=== PATIENT | female | born 1945 | race Caucasian/White ===

== ENCOUNTER → 2016-11-12 | Outpatient (CLI) | payer MEDICARE ==
[~2016-11-12] MED LIST: ARIMIDEX DPS1 MG PO; ARMOUR THYROID60 M1 PO; CALTRATE-600 D600 MG PO; CORTEF10 MG PO; LEVAQUIN DPS750 MG PO; MAG-OX400 MG PO; MOBIC15 MG PO; NEURONTIN DPS600 MG PO; NORCO 5-325 TA1 EACH PO; OCUVITE SOFTGE1 EACH PO; PERCOCET 5 DPS1 TAB PO; PROTONIX40 MG PO; TYLENOL DPS325 MG PO; VIBRAMYCIN-DPS100 M1 PO; VITAMIN C1000 MG PO; VITAMIN D31000 UNIT PO; ZOLOFT DPS100 MG PO; ZYLOPRIM-DPS300 MG PO
== END | disposition home or self-care (01) ==
LOC: RAD.S 13:54
DX: Z12.31 Encounter for screening mammogram for malignant neoplasm of breast (principal); M85.80 Other specified disorders of bone density and structure, unspecified site; M81.0 Age-related osteoporosis without current pathological fracture; R92.1 Mammographic calcification found on diagnostic imaging of breast; I10 Essential (primary) hypertension; Z17.0 Estrogen receptor positive status [ER+]; Z85.3 Personal history of malignant neoplasm of breast; Z98.890 Other specified postprocedural states

== ENCOUNTER 2016-11-17 19:52 | Inpatient (IN) | payer MEDICARE ==
[~2016-11-17] VITALS: Ht 157.5 cm; Wt 95.0 kg
--- NOTE | ~2016-11-17 | DS ---
ADMIT: 11/17/2016 RM/LOC: [facility] MR#: [id number] [facility]#: [id number] [address] [address] SAGE HOOD [address] [place] [address] Discharge Summary SEX: F AGE: 71 : 1945 ADMISSION DATE: 11/17/2016 DISCHARGE DATE: 11/20/2016 REASON FOR ADMISSION: Thoracic diskitis. CONSULTS: Dr. Ferreira with Infectious Disease. PROCEDURE: T11-T12 disc and bone biopsy by Interventional Radiology. HOSPITAL COURSE: Ms. Hood is a very pleasant, 71-year-old female who on the day of admission was taken to the [place] emergency room by ambulance with back pain, foot numbness and fever. She had a knee revision approximately two months ago in [place]. She had been to her doctor the day prior with diarrhea. A CT scan in [place] showed possible thoracic diskitis and she was transferred to [facility] for further evaluation and higher level of care with Dr. Watkins. She was admitted to the med/surg floor for monitoring and care. Sepsis protocol was initiated on admission. Dr. Ferreira with Infectious Disease was consulted. An MRI of her brain and C-spine were obtained as well. These showed no enhancements. Interventional Radiology was consulted for T11-T12 biopsy. Hospital day #2, she was working with Physical Therapy and Occupational Therapy. She was awake and alert. She was afebrile and her vital signs were stable. She was moving all extremities x4 with some left-sided weakness. Hospital day #3, she was awake and alert, she was afebrile her vital signs were stable. She was moving all extremities x4. She was complaining of her feet being painful but improving. She continued to work with Physical Therapy and Occupational Therapy. Hospital day #4, she was awake and alert. She was afebrile and her vital signs were stable. She was moving all extremities x4. She denied back pain. Her foot pain continued to improve. She was ambulating, urinating and defecating per her norm and was requesting dismissal home. DISCHARGE CONDITION: Good. DISCHARGE MEDICATIONS: 1. Percocet 5/325, 1-2 p.o. q.4 hours p.r.n. 2. Tylenol 650 mg p.o. q.4 hours p.r.n. 3. [place] Thyroid 60 mg b.i.d. 4. Anastrozole 1 mg daily. 5. Meloxicam 15 mg daily. 6. Gabapentin 900 mg at bedtime. 7. Pantoprazole 40 mg b.i.d. 8. Allopurinol 300 mg b.i.d. 9. Hydrocortisone 10 mg daily. 10.Sertraline 100 mg daily. 11.[place] 5/325 1 tab q.8 hours p.r.n. 12.Calcium 1200 mg daily. 13.Vitamin D3 a 1000 units daily. 14.Mag museum oxide 500 mg daily. 15.Ocuvite daily. ADMIT: 11/17/2016 RM/LOC: [facility] MR#: [id number] [address] [place] [id number] SAGE HOOD Cristy [address] [place] [address] Discharge Summary SEX: F AGE: 71 : 1945 16.Vitamin C 1000 mg daily. 17.Doxycycline 100 mg b.i.d. x2 weeks. 18.Levofloxacin 200 mg daily x2 weeks. DISCHARGE INSTRUCTIONS: (Per Dr. Watkins) She can have a regular diet. She can do activity as tolerated. She should use fall precautions. She will call with any questions or concerns including neurological worsening, signs or symptoms of infection, or any other issues. She will have a sedimentation rate and CRP in 1 month. FOLLOWUP: She will follow up with Dr. Watkins in 1 month. She is to have a lumbar and thoracic spine MRI with contrast in 2 weeks in [place] with those results faxed to Dr. Ferreira. She will follow up with Dr. Ferreira in clinic in 2 weeks. DISPOSITION: She was discharged home. Total [id number] time for the discharge planning and care coordination was 30 minutes. Shakira Thorpe APRN / Jamin Watkins MD / vdg JOB #: [id number] CC: Jamin Watkins MD, Attending Physician Jamin Watkins MD, Family Physician
[2016-11-22] MEDS ORDERED: ARMOUR THYROID60 M1 PO (11:33)
[2016-11-22] MEDS ORDERED: NEURONTIN DPS600 MG PO (11:33)
[2016-11-22] MEDS ORDERED: ARIMIDEX DPS1 MG PO (11:33)
[2016-11-22] MEDS ORDERED: PROTONIX40 MG PO (11:33)
[2016-11-22] MEDS ORDERED: ZYLOPRIM-DPS300 MG PO (11:33)
[2016-11-22] MEDS ORDERED: MOBIC15 MG PO (11:33)
[2016-11-22] MEDS ORDERED: NORCO 5-325 TA1 EACH PO (11:34)
[2016-11-22] MEDS ORDERED: CALTRATE-600 D600 MG PO (11:34)
[2016-11-22] MEDS ORDERED: VITAMIN D31000 UNIT PO (11:34)
[2016-11-22] MEDS ORDERED: ZOLOFT DPS100 MG PO (11:34)
[2016-11-22] MEDS ORDERED: CORTEF10 MG PO (11:34)
[2016-11-22] MEDS ORDERED: OCUVITE SOFTGE1 EACH PO (11:35)
[2016-11-22] MEDS ORDERED: VITAMIN C1000 MG PO (11:35)
[2016-11-22] MEDS ORDERED: TYLENOL DPS325 MG PO (11:35)
[2016-11-22] MEDS ORDERED: MAG-OX400 MG PO (11:35)
[2016-11-22] MEDS ORDERED: PERCOCET 5 DPS1 TAB PO (11:36)
[2016-11-22] MEDS ORDERED: VIBRAMYCIN-DPS100 M1 PO (11:36)
[2016-11-22] MEDS ORDERED: LEVAQUIN DPS750 MG PO (11:36)
--- NOTE | 2016-11-24 08:55 | HP ---
ADMIT: 11/17/2016 RM/LOC: 521 [facility] MR#: [id number] [facility]#: [id number] [id number] [place], [place] [address] SAGE HOOD [address] [place] [address] History and Physical SEX: F AGE: 71 : 1945 CORRECTED: 11/18/2016 0842 [facility] DATE OF SERVICE: 11/17/2016 REASON FOR ADMIT: Thoracic 11-12 diskitis. HISTORY OF PRESENT ILLNESS: Ms. Hood could not really get out of bed this morning. She had a lot of pain in her left foot although she has some pain throughout her left hemibody, but the left foot is really severe, and also in the middle of her back and thoracolumbar junction. She was really unable to walk much because of the severe pain, although she says she has been defecating and urinating per her norm and feels like she has normal function. It is just the severe pain that has limited her mobility tonight. She has not really been sick lately. She did have a right knee replacement [address] Rowe in [place]. She has had a fever and with a high white count. ISATU Devine, from [facility] called me for transfer PAST MEDICAL HISTORY: Breast lumpectomy, prior lumbar surgery, tubal ligation, cholecystectomy, shoulder surgery, tonsillectomy, GERD, arthritis, diverticulitis, gout, shoulder fracture, right knee arthroplasty, hypothyroidism, depression. FAMILY HISTORY: Arthritis, anemia, prostate cancer. SOCIAL HISTORY: She is a nonsmoker and nondrinker. REVIEW OF SYSTEMS: Complete review of systems was obtained and amended to the history of present illness. LABORATORY DATA: White count 15.5 with 90% neutrophils. Urine with trace leuk esterase, rare epithelium bacteria. Amylase 48, lipase 137, glucose 112, BUN 20, GFR 59. TSH within normal limits. Magnesium 1.4. MEDICATIONS: 1. [place] Thyroid. 2. Meloxicam. 3. Vitamin D. 4. Vitamin C. 5. Arimidex. 6. Gabapentin. 7. Pantoprazole. 8. Allopurinol. 9. Hydrocodone. 10.Hydrocortisone. 11.Sertraline. 12.Mag-Ox. 13.Calcium. PHYSICAL EXAMINATION: VITAL SIGNS: MAP has been 70s to 80s, blood pressure ADMIT: 11/17/2016 RM/LOC: 521 [facility] MR#: [id number] [address] [address] SAGE HOOD [address] [place] [address] History and Physical SEX: F AGE: 71 : 1945 100-139 systolic over 70s diastolic. Pulse has been in the 70s to 80s. Pulse oximetry 98-100%, respiring 12 times a minute. GENERAL: She is an otherwise healthy-appearing, but obese woman. HEENT: Atraumatic head. No scleral icterus. Clear oropharynx. LUNGS: Normal respiratory excursion. ABDOMEN: Soft abdomen. Nontender. EXTREMITIES: With examination, she has pain to movement and touch of her left foot and ankle. 2+ radial pulses. NEUROLOGICAL EXAMINATION: MENTAL STATUS: She is awake, alert, oriented x4. She has no dysphonia, dysarthria, or aphasia. Her affect is appropriate. Her thought content is normal. CRANIAL NERVES: Cranial nerves II through XII were individually tested and found to be intact without deficit. MOTOR EXAM: Motor exam reveals 5/5 strength in bilateral upper and lower extremities, although she has a lot of pain in both the left arm and left leg with movement. The movement pain does not include meningeal irritation signs. She has some mild weakness in the left hemibody, 4+/5. CEREBELLAR: No cerebellar signs. SENSATION: Intact to light touch. DEEP TENDON REFLEXES: 2/4 in the upper and lower extremities. ASSESSMENT AND PLAN: Ms. Hood is a very pleasant woman with MRI delineated T11-12 diskitis. I am going to start the sepsis bundle even though she does not have any cardinal signs of sepsis so that we have the laboratory analysis necessary as well as blood cultures and emergently begin her vancomycin and Zosyn per earlier discussion after accepting transfer with Dr. Ferreira who will see the patient on an ID consult in the morning when laboratory analysis is back as long as we get antibiotics started this ADMIT: 11/17/2016 RM/LOC: 521 [facility] MR#: [id number] [address] [address] SAGE HOOD [address] [place] [address] History and Physical SEX: F AGE: 71 : 1945 evening. She has already had what looks like a couple of liters of normal saline in [place]. I will follow up on laboratory analysis tonight. She has some pain which I think is what is limiting factor, although with diskitis at one level, I am going to obtain an MRI of her brain and cervical spine secondary to that possible weakness, which may be break away in nature because she does have some pain in the left hemibody, although it is a little bit of an unusual presentation, and as such, I think this warrants further imaging with a brain and cervical spine MRI with and without contrast. They are in drawing labs now within about a half hour of her arrival, and antibiotics will be started shortly. Order is already in. Jamin Watkins MD/ chip JOB #: [id number] CC: Jamin Watkins MD, Attending Physician Jamin Watkins MD, Family Physician CORRECTED: 11/18/2016 0842 [facility]
--- NOTE | 2016-11-27 11:23 | CO ---
ADMIT: 11/17/2016 RM/LOC: 521 [facility] MR#: [id number] [address] [address] S[place] HOOD [address] [place] [address] Consultation SEX: F AGE: 71 : 1945 DATE OF CONSULTATION: 11/19/2016 ATTENDING PHYSICIAN: Jamin Watkins MD CONSULTING PHYSICIAN: Kaycee Ferreira MD REASON FOR CONSULT: T11-T12 diskitis. Thank you, Dr. Watkins, for the consult and involving me in this patient's care. HISTORY OF PRESENT ILLNESS: Ms. Hood is a pleasant 71-year-old woman, who was transferred from [place] after she was diagnosed of T11-T12 diskitis. Per the patient, 2 days back, she started noticing severe 10/10 mid-thoracic back pain. She was unable to get up and walk due to severe pain, hence, presented to her primary care doctor and later to the ER. She recently had a right knee total knee replacement around 8 weeks ago in [place] by [place]. Rowe in [place]. When she presented to the ER, she was noted to have fever of 102, and high white count of 15.5. An MRI of the lumbar spine was done with contrast, which showed diskitis at T11-T12 level and mild epidural enhancement. She underwent IR-guided vertebral bone biopsy yesterday and culture and pathology is pending at this time. At present, she complains of severe diarrhea which started a few weeks back and had cleared up. She started again noticing diarrhea, it is 3-4 times a day, loose watery in consistency and was prescribed Flagyl by her primary care doctor without much improvement. She has 2 pet cat scratch avila on her right forearm by her pet cat. FAMILY HISTORY: Significant for prostate cancer in her father. Unknown cancer in her mother. PAST MEDICAL HISTORY: 1. History of breast cancer, status post lumpectomy. 2. Prior lumbar surgery. 3. Cholecystectomy. 4. Tubal ligation. 5. Shoulder surgery. 6. Tonsillectomy. 7. Arthritis. 8. Diverticulitis. 9. Gout. 10.Shoulder fracture. 11.Right knee arthroplasty in August 2016. 12.Depression. 13.Hypothyroidism. SOCIAL HISTORY: She lives at home with her . She has a pet cat and dog. Denies any smoking, alcohol, or recreational drug use. ALLERGIES: NO KNOWN DRUG ALLERGIES. ADMIT: 11/17/2016 RM/LOC: 521 [facility] MR#: [id number] [address] [address] SAGE HOOD [address] [place] [address] Consultation SEX: F AGE: 71 : 1945 CURRENT MEDICATIONS: 1. Arimidex. 2. [place] Thyroid. 3. Cortef 10 mg daily. 4. Flagyl 500 mg t.i.d. 5. Magnesium oxide. 6. Milk of magnesia. 7. Neurontin. 8. Oyster calcium. 9. Protonix. 10.Senokot. 11.Multivitamin. 12.Vitamin C. 13.Vitamin D. 14.Zoloft. 15.Zyloprim. 16.Vancomycin 1 g once daily. 17.Zosyn 3.375 g every 8 hours. PHYSICAL EXAMINATION: VITAL SIGNS: Current temperature 99.8, T-max 100.2, heart rate is 70, respirations 16, blood pressure 124/59, 98% on room air. GENERAL: No acute distress. HEENT. Head normocephalic and atraumatic. Extraocular movements intact. Oral mucosa moist. NECK AND LYMPH: No palpable anterior, posterior, cervical or supraclavicular lymphadenopathy. CHEST: Clear to auscultation bilaterally anteriorly. CARDIOVASCULAR: S1 and S2 heard. Regular rate and rhythm. ABDOMEN: Soft, nontender, and nondistended. Active bowel sounds. MUSCULOSKELETAL: Right knee is mildly warm to touch. No tenderness to palpation. Incision has healed well. PSYCH: Normal affect. Memory intact. DATA REVIEW: CBC on admission showed white count of 10.1, hemoglobin 11.5, and platelets of 195, ESR is 32. CMP showed creatinine of 0.8. Low albumin of 2.9 and magnesium of 1.6. CRP 13.5. Urinalysis showed less than 1 wbc. She had MRI of the brain which was unremarkable. Blood cultures are no growth to date. ASSESSMENT AND PLAN: ADMIT: 11/17/2016 RM/LOC: 521 [facility] MR#: [id number] [address] [place] [id number] SAGE HOOD [id number] [place] [address] Consultation SEX: F AGE: 71 : 1945 1. T11-T12 diskitis. Blood cultures negative so far. Continue with vancomycin and Zosyn for now. Bone biopsy cultures are pending. We will narrow antibiotics after cultures are finalized. 2. Diarrhea. We will send stool for Clostridium difficile PCR and enteric pathogen panel. 3. Status post recent right total knee arthroplasty. We will watch closely for any erythema or swelling. 4. Hypothyroidism. 5. History of breast cancer. 6. Right forearm cat scratch. 7. Depression. Thank you for the consult and I will continue to follow the patient. Kaycee Ferreira MD/ chip JOB #: [id number] CC: Jamin Watkins MD, Attending Physician Jamin Watkins MD, Family Physician
== END 2016-11-20 13:33 | disposition home or self-care (01) | DRG 479 ==
LOC: 5MS 19:52
PROVIDERS: ADMIT Neurological Surgery
PROC: 0PB43ZX Excision of Thoracic Vertebra, Percutaneous Approach, Diagnostic (ICD-10-PCS; principal; 2016-11-18)
DX: M46.44 Discitis, unspecified, thoracic region (principal); F32.9 Major depressive disorder, single episode, unspecified; S50.811A Abrasion of right forearm, initial encounter; K21.9 Gastro-esophageal reflux disease without esophagitis; M19.90 Unspecified osteoarthritis, unspecified site; R19.7 Diarrhea, unspecified; E03.9 Hypothyroidism, unspecified; K57.90 Diverticulosis of intestine, part unspecified, without perforation or abscess without bleeding; W55.03XA Scratched by cat, initial encounter; M10.9 Gout, unspecified; Z96.651 Presence of right artificial knee joint; Z85.3 Personal history of malignant neoplasm of breast

== ENCOUNTER → 2016-12-11 | Outpatient (CLI) | payer MEDICARE | END | disposition home or self-care (01) | LOC: RAD.S 09:08 | DX: R10.31 Right lower quadrant pain (principal) ==

== ENCOUNTER 2016-12-29 08:35 | Day surgery (SDC) | payer MEDICARE ==
[~2016-12-29] VITALS: Ht 157.5 cm; Wt 89.6 kg
--- NOTE | ~2016-12-29 | ECH ---
Transthoracic Echocardiography Report (TTE) Demographics Patient Name SAGE HOOD Date of Study 12/29/2016 K Patient Number [id number] Visit Number [id number] Date of 1945 Room Number Accession Number [id number] Gender Female Age 71 year(s) Referring Marcos Haskins Cupola Operator Radha Braun [facility] Physician Physician Interpreting Anjel Espinoza Liquor Rectifier Physician Supervising Ordering Physician Marcos Haskins MD, MD/P Nurse Stress Tie Binder Conclusions Summary Technically good exam. The estimated left ventricular ejection fraction is 65%. The left ventricle is moderately dilated . Mild biatrial enlargement. Mild to moderate tricuspid regurgitation by color Doppler. There is moderate pulmonary hypertension. The pulmonary pressure (RVSP) is 52 mmHg. Normal RV size and systolic function. Trivial posterior pericardial effusion. Procedure Type of Study TTE procedure:Echo Complete SF. Procedure Date Date: 12/29/2016 Start: 11:36 AM Technical Quality: Good visualization Indications:Edema, Dyspnea and Pulmonary hypertension. Appropriate Use Criteria: 9 Height: 62 inches Weight: 197.54 pounds BSA: 1.9 m Rhythm: NSR HR: 80 bpm BP: 150/73 mmHg M-Mode/2D Measurements LV Diastolic Dimension: 6.2 cm LV Systolic Dimension: 3.49 cm LV Septum Diastolic: 0.81 cm LV PW Diastolic: 0.68 cm AO Root Dimension: 2.78 cm Cardiac Output: 7.5 l/min LA Dimension: 5.21 cm Cardiac Index: 3.95 l/min*m RV Diastolic Dimension: 2.83 cm LA volume index: 39 ml/m Post Pericard Effusion: 0.4 cm LVOT: 1.94 cm LVOT VTI: 31.74 cm RV Base: 3.5 cm LV Stroke volume: 93.77 ml RV Mid: 2.4 cm LV Stroke volume index: 49.35 ml/m TAPSE: 4.2 cm TDI-S': 22 cm/s Doppler Measurements AV Peak Velocity: 1.7 m/s MV Peak E-Wave: 1.37 m/s AV Peak Gradient: 11.56 mmHg MV Peak A-Wave: 0.98 m/s AV Mean Gradient: 6.93 mmHg MV E/A Ratio: 1.39 LVOT Peak Velocity: 1.63 m/s MV P1/2t: 54.9 msec AV Area (Continuity):2.62 cm MV Deceleration Time: 186.5 msec TR Velocity:3.49 m/s MV Area (PHT): 4.01 cm TR Gradient:48.72 mmHg PV Peak Velocity: 1.29 m/s Estimated RAP:3 mmHg PV Peak Gradient: 6.63 mmHg Estimated RVSP: 52 mmHg Estimated PASP: 51.72 mmHg E' Septal Velocity: 0.1 m/s A' Septal Velocity: 0.08 m/s E' Lateral Velocity: 0.09 m/s A' Lateral Velocity: 0.08 m/s RA Area: 19.66 cm Findings Left Ventricle The left ventricle is severely dilated . Diastolic assessment reveals normal relaxation. Right Ventricle Normal right ventricle structure and function. Left Atrium The left atrium is mildly dilated by LA volume index measurement. Right Atrium The right atrium is mildly dilated. Mitral Valve Normal mitral valve structure and function. Mild mitral regurgitation by color Doppler. Aortic Valve The aortic valve is mildly sclerotic. Tricuspid Valve Normal tricuspid valve structure and function. Mild tricuspid regurgitation by color Doppler. There is moderate pulmonary hypertension. The pulmonary pressure (RVSP) is 52 mmHg. Pulmonic Valve Normal pulmonic valve structure and function. Pericardial Effusion Trivial posterior pericardial effusion. Miscellaneous Visualized portions of the aortic root and ascending aorta appear normal in size. Pleural Effusion No evidence of pleural effusion. Contractility Score LV regional wall motion:(0-Non visualized 1-Normal 2-Hypokinesis 3-Akinesis 4-Dyskinesis 5-Aneurysm) Signature
== END 2016-12-29 13:10 | disposition home or self-care (01) ==
LOC: RAD.S 08:35
PROC: 0PB43ZX Excision of Thoracic Vertebra, Percutaneous Approach, Diagnostic (ICD-10-PCS; principal; 2016-12-29)
DX: M46.44 Discitis, unspecified, thoracic region (principal); M46.24 Osteomyelitis of vertebra, thoracic region; I07.1 Rheumatic tricuspid insufficiency; I27.2 Other secondary pulmonary hypertension; Z79.899 Other long term (current) drug therapy; Z79.52 Long term (current) use of systemic steroids

== ENCOUNTER → 2017-01-05 | Outpatient (CLI) | payer MEDICARE | END | disposition home or self-care (01) | LOC: PTH.S 15:15 | DX: Z51.81 Encounter for therapeutic drug level monitoring (principal); M46.24 Osteomyelitis of vertebra, thoracic region; Z79.899 Other long term (current) drug therapy ==